=== PATIENT | female | born 1990 | race Asian ===

== ENCOUNTER 2018-04-24 21:27 | Emergency (ER) | payer MEDICAID ==
[~2018-04-24] VITALS: Ht 160 cm; Wt 59.0 kg
[2018-04-24] MEDS ORDERED: LIORESAL 10 MG10 MG PO (21:42)
[2018-04-24] MEDS ORDERED: DETROL LA4 MG PO (21:43)
[2018-04-24] MEDS ORDERED: VALIUM5 MG PO (21:43)
[2018-04-24 22:34] LABS: URINE BILIRUBIN NEGATIVE (Negative); URINE BLOOD NEGATIVE (Negative); URINE CLARITY TURBID; URINE COLOR YELLOW; URINE GLUCOSE-RANDOM NEGATIVE (Negative); URINE KETONES NEGATIVE (Negative); URINE LEUKOCYTES-REFLEX 1+ (Negative); URINE PROTEIN NEGATIVE (Negative)
[2018-04-24 22:35] LABS: URINE NITRITE-REFLEX POSITIVE (Negative)
[2018-04-24 22:46] LABS: ABSOLUTE BASOPHILS 0.1 thou/uL (0.0-0.2); ABSOLUTE EOSINOPHILS 0.3 thou/uL (0.0-0.7); ABSOLUTE LYMPHOCYTES 1.8 thou/uL (0.8-5.3); ABSOLUTE MONOCYTES 0.4 thou/uL (0.0-1.2); ABSOLUTE NEUTROPHILS 3.3 thou/uL (1.6-8.1); BASOPHILS 1.1 %; EOSINOPHILS 5.1 %; HEMATOCRIT 34.2 % (37.0-47.0); LYMPHOCYTES 31.2 %; MCH 27.3 pg (26.0-34.0); MCHC 32.1 g/dL (28.0-37.0); MCV 84.9 fL (80.0-100.0); MONOCYTES 7.3 %; MPV 8.9 fl. (7.2-11.1); NUCLEATED RBCS 0 /100WBC; PLATELET COUNT* 245 thou/uL (150-400); POLYS 55.3 %; RBC 4.02 mil/uL (4.20-5.00); RDW-CV 15.3 % (10.5-14.5); WBC 5.9 thou/uL (4.0-11.0)
[2018-04-24 22:49] LABS: CREATININE 0.5 mg/dL (0.6-1.3); POTASSIUM 4.2 mmol/L (3.5-5.1)
[2018-04-24 22:50] LABS: BACTERIA-REFLEX >30 Many /HPF (None Seen); SQUAMOUS >10 Many /LPF (0-3)
[2018-04-24 22:52] LABS: MUCUS 0-3 Light strn/LPF (None Seen)
[2018-04-24 22:53] LABS: URINE RBC 0-2 Rare /HPF (0-2); URINE WBC-REFLEX >25 Many /HPF (0-5); WBC CLUMPS Few (None Seen)
[2018-04-24 22:54] LABS: CASTS None Seen /LPF (None Seen); CRYSTALS None Seen /LPF (None Seen)
[2018-04-24 22:59] LABS: TOTAL BILIRUBIN 0.1 mg/dL (<0.1-1.0); TOTAL PROTEIN 6.8 g/dL (6.4-8.2)
[2018-04-25] MEDS ORDERED: HYDROCODONE-AP1 EAC6 PO (00:18)
[2018-04-25] MEDS ORDERED: AUGMENTIN 875-1 EACH PO (00:19)
[2018-04-25 00:30] VITALS: BP 112/70
== END 2018-04-25 00:30 | disposition home or self-care (01) ==
LOC: M.ERS 21:27
PROVIDERS: Nurse Practitioner Family
DX: N39.0 Urinary tract infection, site not specified (principal); M62.838 Other muscle spasm

== ENCOUNTER 2018-04-27 10:29 | Inpatient (IN) | payer MEDICAID ==
[~2018-04-27] VITALS: Ht 160 cm; Wt 70.3 kg
[~2018-04-27 10:29] MED LIST: AUGMENTIN 875-1 EACH PO; DETROL LA4 MG PO; HYDROCODONE-AP1 EAC6 PO; LIORESAL 10 MG10 MG PO; VALIUM5 MG PO
[2018-04-27 10:37] VITALS: BP 102/57
[2018-04-27 11:28] LABS: ABSOLUTE EOSINOPHILS 0.3 thou/uL (0.0-0.7); ABSOLUTE LYMPHOCYTES 1.3 thou/uL (0.8-5.3); ABSOLUTE MONOCYTES 0.2 thou/uL (0.0-1.2); ABSOLUTE NEUTROPHILS 4.2 thou/uL (1.6-8.1); BASOPHILS 0.4 %; EOSINOPHILS 5.3 %; HEMATOCRIT 37.1 % (37.0-47.0); HEMOGLOBIN 11.8 gm/dL (12.0-15.0); LYMPHOCYTES 20.8 %; MCH 27.2 pg (26.0-34.0); MCHC 31.8 g/dL (28.0-37.0); MCV 85.6 fL (80.0-100.0); MPV 9.3 fl. (7.2-11.1); NUCLEATED RBCS 0 /100WBC; PLATELET COUNT* 231 thou/uL (150-400); POLYS 69.5 %; RBC 4.33 mil/uL (4.20-5.00); RDW-CV 15.7 % (10.5-14.5); WBC 6.1 thou/uL (4.0-11.0)
[2018-04-27 11:34] LABS: CALCIUM 8.1 mg/dL (8.5-10.1); CREATININE 0.6 mg/dL (0.6-1.3); POTASSIUM 4.3 mmol/L (3.5-5.1)
[2018-04-27 11:35] LABS: URINE BILIRUBIN NEGATIVE (Negative); URINE BLOOD NEGATIVE (Negative); URINE CLARITY CLEAR; URINE COLOR YELLOW; URINE GLUCOSE-RANDOM NEGATIVE (Negative); URINE KETONES NEGATIVE (Negative); URINE LEUKOCYTES-REFLEX TRACE (Negative); URINE NITRITE-REFLEX NEGATIVE (Negative); URINE PROTEIN NEGATIVE (Negative); URINE SPECIFIC GRAVITY 1.025 (1.005-1.030)
[2018-04-27 11:39] LABS: ALBUMIN 2.6 g/dL (3.4-5.0); TOTAL BILIRUBIN 0.3 mg/dL (<0.1-1.0)
[2018-04-27 12:07] LABS: MUCUS >6 Heavy strn/LPF (None Seen); SQUAMOUS >10 Many /LPF (0-3)
[2018-04-27 12:08] LABS: CASTS None Seen /LPF (None Seen); URINE WBC-REFLEX >25 Many /HPF (0-5); WBC CLUMPS Many (None Seen)
[2018-04-27 12:09] LABS: BACTERIA-REFLEX >30 Many /HPF (None Seen); CRYSTALS None Seen /LPF (None Seen); URINE RBC 3-10 Few /HPF (0-2)
[2018-04-27 15:13] VITALS: BP 85/43
[2018-04-27 16:00] VITALS: BP 124/52; BP 92/52
--- NOTE | 2018-04-27 16:37 | NUR ---
PT ADMITTED FROM ER. HISTORY AND ASSESSMENT COMPLETE.
[2018-04-27 20:00] VITALS: BP 88/48
[2018-04-28] VITALS: BP 86/33
[2018-04-28 04:00] VITALS: BP 83/36
--- NOTE | 2018-04-28 04:30 | NUR ---
ASSUMED CARE OF PT AT 1900 PT ALERT AND ORIENTED X4 VS AND ASSESSMENT AT PTS BASLELINE. PT C/O L HAND PAIN OBTAINED AND ADMINISTERED PAIN MEDS. PT C/O FACIAL ITCHING, FACE WAS RED AND BLOTCHY OBTAINED AND ADMINISTERED BENADRYL 25MG PO X1 PTS REDNESS AND BLOTCHINESS RESOLVE BUT PT STILL C/O ITCHING OBTAINED ORDER FOR BENADRYL CREAM AND ADMINISTERED . AT 0400 PT C/O "FREQUENTLY DROPPING THINGS OVERNIGHT" WILL PAS THIS ON TO DAY SHIFT TO NOTIFY MD. PT RUNNING NS TO ST ON THE MONITOR. WILL CONTINUE PLAN OF CARE.
[2018-04-28 05:10] LABS: HEMATOCRIT 34.9 % (37.0-47.0); HEMOGLOBIN 11.1 gm/dL (12.0-15.0); MCH 27.5 pg (26.0-34.0); MCHC 31.9 g/dL (28.0-37.0); MCV 86.1 fL (80.0-100.0); MPV 10.2 fl. (7.2-11.1); RBC 4.05 mil/uL (4.20-5.00); WBC 8.2 thou/uL (4.0-11.0)
[2018-04-28 05:18] LABS: CALCIUM 8.1 mg/dL (8.5-10.1); CREATININE 0.6 mg/dL (0.6-1.3); MAGNESIUM 1.8 mg/dL (1.8-2.4); POTASSIUM 4.3 mmol/L (3.5-5.1)
[2018-04-28 09:00] VITALS: BP 87/41
[2018-04-28 12:00] VITALS: BP 88/41
--- NOTE | 2018-04-28 19:49 | NUR ---
Report received at 0700, pt assessment complete. Pt able to make needs known, family at bedside most of this shift. MRI ordered and taken off unit for scan. pt appetite fair, minor c/o pain throughout shift. hourly rounding complete.
[2018-04-28 20:15] VITALS: BP 88/43
[2018-04-29] VITALS (8 sets, daily range): BP systolic 68–99; BP diastolic 33–53
--- NOTE | 2018-04-29 01:15 | NUR ---
DR MCKINNEY NOTIFIED OF PT HEART RATE AND CO HEADACHE UNRELIEVED BY PAIN MED AND BACLOFEN. NO NEW ORDERS AT THIS TIME.
--- NOTE | 2018-04-29 06:49 | NUR ---
PT SLEPT A LITTLE OFF AND ON OVERNIGHT. CO HEADACHE AND R HAND TINGLING, ALSO ITCHING TO BOTH HANDS AT TIMES. PO PAIN MED GIVEN ORDERED. TELE ST, UP INTO 120-130 AT TIMES. MADE AWARE. ANALI SL. BEDREST, PICTURE TAKEN OF R HEEL. PT TURNED AND REPOSITIONED Q2 HOURS AND PRN SHE WOULD ALLOW. SUPRAPUBIC CATHETER DRAINING YELLOW URINE. REQUESTING CHOCOLATE PUDDING SEVERAL TIMES OVERNIGHT FOR SNACK. AM LABS DRAWN. ABLE TO USE CALL LITE AND MAKE NEEDS KNOWN. BP SOFT AND STABLE.
--- NOTE | 2018-04-29 14:32 | CON ---
[address] [address] CONSULTATION Name: HECTORAVANataliia Puri Room: [address] IN .R.#: [id number] Admission: 04/27/18 Attend Phys: Simon Jacobson, Discharge: Date of : 91 Report #: [id number] THIS REPORT FOR: //name// CC: RADHA physician/PCP Simon Jacobson MD DATE OF SERVICE: 04/28/2018 HISTORY OF PRESENT ILLNESS: The patient is a 28-year-old female with a 12-year history of transverse myelitis at T4-T6. Apparently, the patient had gone to [facility] for a visit and contracted transverse myelitis. The patient has significant weakness in the lower extremities. The patient had come to the hospital 3 days prior when she had been diagnosed with urinary tract infection. However, this did not seem to be improving and when she then noticed paresthesias in the upper extremities, the patient was admitted to the hospital and placed on IV antibiotics. Today, the patient states the symptoms seem better, but she still has paresthesias in the upper extremities and also feels that she has spasticity in the upper extremities, which is also something unusual for her. PAST MEDICAL HISTORY: Transverse myelitis. PAST SURGICAL HISTORY: Bladder augmentation. MEDICATIONS: Baclofen 10 mg q.i.d., oxybutynin 5 mg t.i.d., diazepam 5 mg daily. ALLERGIES: AMOXICILLIN. PHYSICAL EXAMINATION: VITAL SIGNS: Temperature is 37.4, pulse rate 102, respiratory rate 16, blood pressure 88/41, bedside pulse oximetry 97% on room air. LABORATORY DATA: Hematology: White blood cell count 8.2, hemoglobin 11.1, hematocrit 34.9, MCV 86.1, platelet count 225,000. Urinalysis, trace leukocyte esterase, many bacteria, nitrite negative. Chemistry: Sodium 137, potassium 4.3, chloride 106, carbon dioxide 26, BUN 13, creatinine 0.6, GFR 120. Glucose 87, calcium 8.1, magnesium 1.8. Liver functions normal. No imaging studies. NEUROLOGIC: Cranial nerves 2-12 are grossly intact. Motor exam demonstrates symmetrical strength in the upper extremities. The patient has no appreciable movement in the lower extremities and has significant spasticity in the lower extremities. Reflexes are symmetric in the upper extremities. She has bilateral extensor plantar responses. There is no evidence of dysmetria in [place] [address] CONSULTATION Name: NATHALIA YOUNG Room: [address] IN [facility]#: [id number] Admission: 04/27/18 Attend Phys: Simon Jacobson, Discharge: Date of : 91 Report #: [id number] IMPRESSION: This patient has a history of transverse myelitis in the thoracic spine. I explained to her that this will not cause symptoms in the upper extremities. I have ordered an MRI of the cervical and thoracic spine, both with and without contrast. I did explain to her; however, that because she has a bladder infection, this can cause other symptoms and can make her previous symptoms more apparent. Because she has generalized paresthesias, I have also ordered a B12 level. Dr. Pleitez will be following the patient as of Sunday. I thank you for your kind referral of this patient. <ELECTRONICALLY SIGNED> By: Mary Rodriguez DO 04/29/18 1432 1315 [id number] Rodriguez DO /nt
--- NOTE | 2018-04-29 15:26 | NUR ---
MET WITH PT AND MOM TO DISCUSS HOME SITUATION/DC PLANNING. PT LIVES WITH PARENTS. SHE IS UNINSURED BUT STATES APPLIED FOR MEDICAID A FEW DAYS AGO, MADE HER AWARE THAT IT CAN TAKE UP TO 30 DAYS TO HEAR BACK. PT IS W/C BOUND, DOES SELF CATH. PARENTS ARE SUPPORTIVE. PT STATES SHE IS FAIRLY INDEPENDENT. UNSURE IF SHE WILL BE ABLE TO AFFORD HER MEDS, STATED MAY DEPEND ON COST. CM TO FOLLOW AND ASSIST
--- NOTE | 2018-04-29 16:18 | NUR ---
PATIENT GIVEN PRN OXY IR FOR HEADACHE. DR. GONZALEZ ORDERED IV KEPPRA AND IV MAG FOR HEADACHE, INFUSED ORDERED. WILL RESUME IV KEPPRA WHEN RETURNED FROM MRI OF HEAD ORDERED BY NEURO. PATIENT REFUSING TO TURN MOST OF THE SHIFT, EDUCATION GIVEN. PRAFO BOOTS ORDERED, MATERIALS NOTIFIED OF ORDER AND ALSO PILOT NOTIFIED OF NEED FOR BOOTS. IV SL, SCHED ABX GIVEN THIS AM. PATIENT REQUESTING MEDICATION TO HELP WITH SPASMS FOR MRI, IV ATIVAN GIVEN PER MAR ORDERS. BLOOD PRESSURE CONTINUES TO RUN SOFT, PER PATIENT THIS IS HER NORMAL. ONE TIME IM DOSE OF VITAMIN B12 GIVEN ORDERED, MEDICATION TO START PO TOMORROW.
[2018-04-30 04:00] VITALS: BP 103/52
--- NOTE | 2018-04-30 06:39 | NUR ---
PT AO, PLEASANT. SLEPT ON AND OFF OVERNIGHT. RECEIVING OXY IR FOR CO HEADACHE WITH PAIN GOING DOWN INTO HER BACK SHE STATES. TEMP MAX 99.9 OVERNIGHT, TYLENOL GIVEN. REQUESTING ORDER FOR VALIUM AT HS FOR LEG SPASTICITY, DR DE LEON NOTIFIED AND ORDER RECEIVED. LAC SL. PT TURNED AND REPOSITIONED SHE WOULD ALLOW OVERNIGHT FOR SKIN CARE AND COMFORT. PRAFO BOOTS ON BLE. TELE ST, RATE INTO 130'S FOR A PERIOD OF TIME OVERNIGHT, BUT MAINLY 110'S LOW 120'S THIS SHIFT. SUPRAPUBIC CATH DRAINING LIGHT YELLOW URINE. R HEEL PRESSURE SORE. ABLE TO USE CALL LITE AND MAKE NEEDS KNOWN.
[2018-04-30 07:55] VITALS: BP 91/48
--- NOTE | 2018-04-30 10:50 | NUR ---
Nutrition: Pt was seen for pressure ulcer on Rt heel. Feet are swollen right now, edema. Admitted for UTI. 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 Labs: albumin 2.6, prealb 18.1. Takes B12. Pt stated she is eating 100% of meals. She is vegetarian and is not receiving the proper diet. RD spoke with RN and will change diet order to reflect Vegetarian diet. Noticed wt increasing since admit - pt stated fluid-related, also noted bed wts. Pt stated usual wt is 130#. Encouraged good protein intake at meals for wound healing. Mild risk at this time.
[2018-04-30 12:00] VITALS: BP 95/59
[2018-04-30 16:00] VITALS: BP 90/50
--- NOTE | 2018-04-30 18:15 | NUR ---
PATIENT A&OX4, RA, IV LEFT AC SALINE LOCK. BEDREST, PARAPALEGIC. UP TO W/C WITH ASSISTX1-2. C/O HEADACHE RADIATING DOWN THE SHOULDERS AND BACK. PARTIAL RLEIF WITH MEDICATION. REDNESS TO RIGHT HEEL, PRAVO BOOTS IN PLACE. NO OTHER CONCERNS AT THIS TIME. APPROPRIATE AND COOPORATIVE WITH CARE.
[2018-04-30 20:00] VITALS: BP 85/44
[2018-05-01 00:17] VITALS: BP 87/44
[2018-05-01 04:00] VITALS: BP 99/59
[2018-05-01 04:23] LABS: ABSOLUTE EOSINOPHILS 0.3 thou/uL (0.0-0.7); ABSOLUTE MONOCYTES 0.5 thou/uL (0.0-1.2); BASOPHILS 0.6 %; EOSINOPHILS 4.4 %; HEMOGLOBIN 10.5 gm/dL (12.0-15.0); MCH 27.2 pg (26.0-34.0); MCHC 31.7 g/dL (28.0-37.0); MCV 85.9 fL (80.0-100.0); MONOCYTES 9.1 %; MPV 9.3 fl. (7.2-11.1); NUCLEATED RBCS 0 /100WBC; PLATELET COUNT* 244 thou/uL (150-400); POLYS 51.9 %; RBC 3.85 mil/uL (4.20-5.00); RDW-CV 15.5 % (10.5-14.5); WBC 5.8 thou/uL (4.0-11.0)
[2018-05-01 04:34] LABS: CALCIUM 8.5 mg/dL (8.5-10.1); CREATININE 0.5 mg/dL (0.6-1.3); MAGNESIUM 1.8 mg/dL (1.8-2.4); POTASSIUM 4.2 mmol/L (3.5-5.1)
--- NOTE | 2018-05-01 06:19 | NUR ---
PATIENT SLEPT MOST OF THE NIGHT. IV REMAINS SALINE LOCKED. PATIENT WAS GIVEN PAIN MEDS AND BENADRYL NEEDED. SUPRAPUBIC CATH REMAINS TO DEPENDENT DRAIN. WILL CONTINUE TO MONITOR.
[2018-05-01 12:00] VITALS: BP 109/64
[2018-05-01 16:00] VITALS: BP 91/57
--- NOTE | 2018-05-01 17:40 | NUR ---
DEFERRED O.T. EVAL UNTIL TOMORROW DUE TO PT. IN THE SHOWER WITH DEPENDENT PERSON TRANSFER X 3 WITH MOTHER ASSISTING HER WITH THE SHOWER. WILL CHECK DURING EVALUATION TO SEE WHAT ADLS PT. WANTS TO COMPLETE HERSELF AND WHAT SHE WANTS FAMILY TO DO FOR HER. PER THE RN, PT. LEAVES FOR [place] NEXT WEEK ON SUNDAY FOR FURTHER STEM CELL TX.
--- NOTE | 2018-05-01 18:08 | NUR ---
PATIENT A&OX4, RA, IV LEFT AC INFILTRATED. NEW IV PLACED IN LEFT FOREARM ABX INFUSSING. UP WITH ASSISTX2-3, W/C DEPENDENT. C/O HEADACHE RAIDIATING TO BACK, PARTIAL RELIEF WITH MEDICAITON. NUMBNESS AND TINGLING TO BILATERAL HANDS, STATES BETTER TODAY. SUPRAPUBIC CATHETER CHANGED TODAY, STAT LOCK IN PLACE. SHOWER TODAY. NO OTHER CONCERNS AT THIS TIME. APPROPRIATE AND COOPORATIVE WITH CARE.
[2018-05-01 20:00] VITALS: BP 84/38
[2018-05-01 21:09] LABS: IgA 235 mg/dL (87-352); IgG 908 mg/dL (700-1600); IgM 111 mg/dL (26-217)
--- NOTE | 2018-05-02 03:29 | NUR ---
ASSESSMENT: PT REMAIN ALERT AND ORIENT TIMES FOUR. C/O HEADACHE PAIN, LASTING FOR FOUR HOURS. TYLENOL GIVEM WITH GOOD RESULTS. FAMILY WAS AT THE BEDSIDE AT THE BEGINNING OF THE SHIFT. TURNED PER REQUEST AND 2 HOURS.SUPERPUBIC CATH PATENT WITH YELLOW UO. NO BM THIS SHIFT. PT STATES THAT SHE HAS FEELING THROUGH OUT BODY, DOES HAVE SOME TINGLING AND NUMBNESS ON UPPER AND LOWER EXTREMITES. TOLERATING PO INTAKE. SLOW PROGRESS TOWARDS DC GOALS. WILL CONTINUE TO MONITOR.
[2018-05-02 08:00] VITALS: BP 115/57
--- NOTE | 2018-05-02 12:35 | CON ---
[address] [address] CONSULTATION Name: HECTORNATHALIA Room: [address] IN M.R.#: [id number] Admission: 04/27/18 Attend Phys: Simon Jacobson, Discharge: Date of : 91 Report #: [id number] THIS REPORT FOR: //name// CC: RADHA physician/PCP Simon Jacobson DATE OF SERVICE: 05/01/2018 INFECTIOUS DISEASE CONSULTATION ATTENDING PHYSICIAN: Simon Jacobson M.D. REASON FOR EVALUATION: Complicated urinary tract infection due to multiply resistant Pseudomonas aeruginosa. HISTORY OF PRESENT ILLNESS: Chart reviewed, the patient examined. This is a 28-year-old woman with history of transverse myelitis, who is left with some degree of deficits. She has had a history of recurrent urinary tract infections and was admitted due to back-related discomfort. She was confirmed to have marked degree of pyuria on 2 separate occasions, 04/24/2018 and 04/27/2018. Urine culture from 04/24/2018 was a mixed evelyn; from 04/27/2018, however, it had Pseudomonas aeruginosa, 10-25,000 colony-forming units per mL, that was multi-drug resistant, only susceptible in vitro and an STEPHEN of equivalent to gentamicin for the standard tested antibiotics. Initially, she had been on ceftriaxone. Thus, she was given a dose of gentamicin. At this point, she is not overtly toxic, though there is some degree of discomfort. She denies pulmonary or gastrointestinal-related complaints. ALLERGIES: AMOXICILLIN. CURRENT MEDICATIONS: Include gentamicin, folic acid, cyanocobalamin, diphenhydramine, diazepam, acetaminophen, ceftriaxone, enoxaparin and oxycodone. PAST MEDICAL HISTORY: As described above, the transverse myelitis, history of cardiac arrest and seizures. SOCIAL HISTORY: Nonsmoker. Occasional ethanol. FAMILY HISTORY: Noncontributory. REVIEW OF SYSTEMS: As above. PHYSICAL EXAMINATION: GENERAL: She is a pleasant, alert, cooperative, sitting in a wheelchair. She is not encephalopathic, in mild distress, appears generally well nourished. VITAL SIGNS: Temperature 97.8, pulse 106, respirations 20 [place] [address] CONSULTATION Name: HECTOR,VIRALI J Room: [address]#: [id number] Admission: 04/27/18 Attend Phys: Simon Jacobson, Discharge: Date of : 91 Report #: [id number]. SKIN: Warm, dry. No rashes. HEENT: Otherwise, unremarkable. NECK: Supple. LUNGS: Clear to auscultation. HEART: Regular. I do not appreciate a murmur. ABDOMEN: Soft, mildly distended. There are no peritoneal signs. GENITOURINARY: Deferred. RECTAL: Deferred. LABORATORY DATA: Urine culture as described above. CBC, most recently, white count is 5.8, H and H 10.5 and 33.0 and platelets 244,000. Electrolytes: Sodium 139, potassium 4.2, chloride 104, bicarbonate is 28 and BUN and creatinine 4 and 0.5. TSH of 3.754. CPK 24. test was negative. Blood cultures are sterile. ASSESSMENT AND PLAN: Complicated urinary tract infection in a patient with neurological deficits. Additional history seems to be recurrent in nature and she has received multiple courses of antibiotics. At this point, has multiple resistant Pseudomonas aeruginosa. We will continue the gentamicin on a once daily dosing, noted often will go 10 or so days since she is leaving for [facility] within the week. We will repeat the urinalysis in 3-4 days to see how she is doing clinically. She is not overtly toxic at this point. <ELECTRONICALLY SIGNED> By: Abundio Ramos MD 05/02/18 1235 1625 0004Joelo Ramos MD /nt
[2018-05-02 16:12] VITALS: BP 121/46
--- NOTE | 2018-05-02 19:25 | NUR ---
ASSUMED CARE THIS AM, JEANNA MEDS AND CARES W/O C/O, VSS, SEE ASSESSMENT FOR DETAILS. FAMILY AT BEDSIDE, PLAN IS TO CONTINUE IV ABT THERAPY UNTIL PATIENT NEEDS D/C TO RETURN TO [facility], PLAN OF CARE DISCUSSED WITH PATIENT, DENIES QUESTIONS, CALL LIGHT IN REACH, CONT POC.
[2018-05-03] VITALS: BP 91/54
[2018-05-03 04:53] LABS: ABSOLUTE BASOPHILS 0.1 thou/uL (0.0-0.2); ABSOLUTE EOSINOPHILS 0.3 thou/uL (0.0-0.7); ABSOLUTE LYMPHOCYTES 3.2 thou/uL (0.8-5.3); ABSOLUTE MONOCYTES 0.6 thou/uL (0.0-1.2); BASOPHILS 1.1 %; EOSINOPHILS 3.7 %; HEMATOCRIT 34.1 % (37.0-47.0); MCH 27.4 pg (26.0-34.0); MCHC 32.3 g/dL (28.0-37.0); MCV 85.1 fL (80.0-100.0); MONOCYTES 8.1 %; MPV 9.2 fl. (7.2-11.1); NUCLEATED RBCS 0 /100WBC; PLATELET COUNT* 291 thou/uL (150-400); POLYS 42.1 %; RBC 4.01 mil/uL (4.20-5.00); RDW-CV 15.6 % (10.5-14.5); WBC 7.2 thou/uL (4.0-11.0)
[2018-05-03 05:04] LABS: ALBUMIN 2.9 g/dL (3.4-5.0); CALCIUM 8.3 mg/dL (8.5-10.1); CREATININE 0.5 mg/dL (0.6-1.3); POTASSIUM 4.2 mmol/L (3.5-5.1); TOTAL BILIRUBIN 0.2 mg/dL (<0.1-1.0); TOTAL PROTEIN 6.4 g/dL (6.4-8.2)
--- NOTE | 2018-05-03 06:44 | NUR ---
PT SLEPT FAIRLY WELL OVERNIGHT. RECEIVING OXY AT HS AND DIAZEPAM ORDERED FOR ANXIETY. PT REQUESTING CM CONSULT TO SEE ABOUT DAY PASS TO VISIT FAMILY. AM LABS DRAWN. VSS. SUPRAPUBIC CATHETER DRAINING YELLOW URINE. PT TURNED AND REPOSITIONED Q2 HOURS AND PRN FOR SKIN CARE AND COMFORT PT WOULD ALLOW. PRAFO BOOTS ON BLE. AT HS PT STATED IV BURNING WITH FLUSH, WOULD LIKE IV REMOVED AND RESTARTED JUST PRIOR TO NEXT ABX DOSE 05/03. ABLE TO USE CALL LITE AND MAKE NEEDS KNOWN.
[2018-05-03 08:00] VITALS: BP 100/57
[2018-05-03 14:10] LABS: ANA INTERPRETATION Negative (Negative)
[2018-05-03 15:30] VITALS: BP 95/62
--- NOTE | 2018-05-03 18:52 | NUR ---
RESUMED CARE THIS AM, COMPLIANT W/ MEDS AND CARES, NEW IV PLACED TO LFA X 1 ATTEMPT W/ USE OF ULTRASOUND, FAMILY AT BEDSIDE, NO DISTRESS NOTED, CONT POC.
[2018-05-03 19:50] VITALS: BP 89/57
[2018-05-04 05:02] LABS: HEMATOCRIT 33.5 % (37.0-47.0); HEMOGLOBIN 10.8 gm/dL (12.0-15.0); MCH 27.2 pg (26.0-34.0); MCHC 32.2 g/dL (28.0-37.0); MCV 84.6 fL (80.0-100.0); MPV 9.1 fl. (7.2-11.1); RBC 3.96 mil/uL (4.20-5.00); RDW-CV 15.5 % (10.5-14.5)
[2018-05-04 05:52] LABS: CALCIUM 8.6 mg/dL (8.5-10.1); CREATININE 0.6 mg/dL (0.6-1.3); MAGNESIUM 1.9 mg/dL (1.8-2.4); POTASSIUM 4.4 mmol/L (3.5-5.1); TOTAL BILIRUBIN 0.2 mg/dL (<0.1-1.0); TOTAL PROTEIN 6.6 g/dL (6.4-8.2)
--- NOTE | 2018-05-04 07:02 | NUR ---
VITALS WNL. SEE MAR. SEE CHARTING. FALL PRECAUTIONS IN PLACE. HOURLY ROUNDING FOR SAFETY.
[2018-05-04 09:00] VITALS: BP 89/49
--- NOTE | 2018-05-04 12:18 | NUR ---
ASSUMED PT CARE AT 0700 PT IS ALERT AND ORIENTED X4 PT STATES HAS MILD PAIN IN RIGHT HEEL PT HAS BLISTER ON RIGHT INNER HEEL, PT DENIES SOA PT IS RA, PT IS Q 2 TURNS MOBIITY IS COMPROMISED, PT IS MEDICAL SURGICAL STATUS, PT HAS BOLDEN IN BLADDER STOMA PT WANTS REMOVED PAGED PHYSICIAN OBTAINED ORDERS FOR REPEAT UA WITH CULTURE AND BOLDEN CAN BE REMOVED, PT CONCERNED WITH DIET PT IS A VEGETARIAN NOT A VEGAN CALLED DIETARY TO CONFIRM DIET REFLECTS PT REQUEST, WILL CONTINUE TO MONITOR
[2018-05-04 13:34] LABS: URINE BILIRUBIN NEGATIVE (Negative); URINE BLOOD NEGATIVE (Negative); URINE CLARITY CLEAR; URINE COLOR YELLOW; URINE GLUCOSE-RANDOM NEGATIVE (Negative); URINE KETONES NEGATIVE (Negative); URINE LEUKOCYTES-REFLEX 1+ (Negative); URINE NITRITE-REFLEX NEGATIVE (Negative); URINE PROTEIN NEGATIVE (Negative); URINE SPECIFIC GRAVITY <= 1.005 (1.005-1.030); URINE UROBILINOGEN 0.2 E.U./dl (0.2-1.0)
[2018-05-04 13:55] LABS: CASTS None Seen /LPF (None Seen); MUCUS 0-3 Light strn/LPF (None Seen); SQUAMOUS >10 Many /LPF (0-3)
[2018-05-04 13:56] LABS: BACTERIA-REFLEX 1-9 Few /HPF (None Seen); CRYSTALS None Seen /LPF (None Seen); URINE RBC 0-2 Rare /HPF (0-2); URINE WBC-REFLEX 0-5 Rare /HPF (0-5)
[2018-05-04 16:00] VITALS: BP 96/53
[2018-05-04 21:00] VITALS: BP 88/43
[2018-05-05 00:40] VITALS: BP 98/67
--- NOTE | 2018-05-05 05:17 | NUR ---
ALERT AND ORIENTED X4. C/O LOW BACK PAIN AND SPASMS IN LOWER LEGS, MEDICATION GIVEN AND PATIENT THEN ABLE TO SLEEP. PATIENT STRAIGHT CATH SELF THROUGH STOMA WITHOUT DIFICULTY WITH CLEAR YELLOW URINE RETURNED. STRAIGHT CATH TUBING WAS THEN USED TO INSTALL GENTAMMYCIN ANTIBIODIC WITHOUT DIFFICULTY. HEELS ELEVATED OFF BED. RIGHT HEEL WOUND DRY WITHOUT DRAINAGE. PULSE NOTED TO BE ELEVATED AND B/P LOW DR NOTIFIED. 12LEAD EKG DONE ORDERED. OFFERED TO REPOSITION PATIENT SEVERAL TIMES AND PATIENT REFUSED. CALL LIGHT WITHIN REACH.
--- NOTE | 2018-05-05 07:42 | NUR ---
ASSUMED CARE OF PT AT THIS TIME. REPORT OBTAINED FROM [facility] FREIT[facility]. PT ASLEEP AT THIS TIME.
[2018-05-05 08:45] VITALS: BP 97/64
--- NOTE | 2018-05-05 11:11 | EKG ---
[place] [address] ELECTROCARDIOGRAM REPORT Name: AVA YOUNGNataliia Puri Room: [address] ADM IN M.R.#: [id number] Admission: 04/27/18 Attend Phys: Simon Jacobson, Discharge: Date of : 91 Report #: [id number] THIS REPORT FOR: //name// [facility] Test Date: 2018-05-04 Test Time: 23:35:35 Pat Name: NATHALIA YOUNG Department: Room: [address] Gender: F X Ray Service Engineer: VO : 1990 Requested By: Simon Jacobson Order Number: [id number] Jonatan MD: Eder Gomez Measurements Intervals Norman Rate: 94 P: 42 AZ: 138 QRS: 16 QRSD: 78 T: 23 QT: 370 QTc: 463 Interpretive Statements Sinus rhythm Probable left atrial enlargement Borderline T abnormalities, anterior leads Baseline wander in lead(s) V3 No previous ECG available for comparison Electronically Signed On 05-05-2018 11:11:24 CDT by Eder Gomez [email or web address] <ELECTRONICALLY SIGNED> By: Eder Gomez MD, [facility] 05/05/18 1111 [id number] [id number] Eder Gomez MD, FAC /EPI
[2018-05-05 16:17] VITALS: BP 93/56
--- NOTE | 2018-05-05 18:59 | NUR ---
PT VSS THIS SHIFT. PT TOLERATING DIET AND RA AT THIS TIME. PT HAS WOUND ON R INNER HEEL, PIX NOT OBTAINED AT THIS TIME, WILL INFORM INFORMATION SECURITY ASSOCIATE. PT IS PARAPALEGIC BUT IS VERY CONDITIONED. PT PLACED IN CONTACT ISOLATION THIS SHIFT. PT MOTHER, WHO IS PT CAREGIVER, A PATIENT ON THIS UNIT AND THEY ARE BOTH BEING PLANNED TO DC TOGETHER. PT HAS URINARY STOMA AND PT STRAIGHT CATHS SELF Q4 WITH HER MOTHER. PT HAD 400 OUT MY SHIFT THAT I SAW. PT TAKES VALIUM FOR SPACTICITY AND HAS C/O LOW BACK PAIN. PT TO POTENTIALLY DC TOMORROW.
[2018-05-05 20:25] VITALS: BP 95/55
--- NOTE | 2018-05-06 06:10 | NUR ---
PT SLEPT ON AND OFF THIS SHIFT. ASSESSMENT DOCUMENTED. MEDS GIVEN PER E-MAR. IV PATENT. PT STRAIGHT CATHED SELF THIS SHIFT, NO REDNESS OR EDEMA AROUND STOMA. NO REPORTS OF PAIN OR NAUSEA. PT ASKING IF DR WILL WRITE A LETTER CLEARING HER TO GO [employer]. WILL CONTINUE WITH PLAN OF CARE.
[2018-05-06 08:00] VITALS: BP 96/57
[2018-05-06] MEDS ORDERED: FOLIC ACID1 MG PO (10:39)
[2018-05-06] MEDS ORDERED: VITAMIN B-12500 MCG PO (10:39)
[2018-05-06] MEDS ORDERED: GENTAMICIN PER TUBE (11:27)
[2018-05-06 11:28] VITALS: BP 96/57
--- NOTE | 2018-05-06 11:32 | NUR ---
YASMEEN met with pt and pt mother to follow up on pt dc planning for today. Pt in need of medicine for bladder irrigation; YASMEEN discussed with Dr Plata about pt Medicaid pending and pt services not available. Dr Plata said pt and pt mother should be able to provide needed care at home. YASMEEN faxed script to [facility] to check on possible financial assistance that could be provided. Pt discussed need for slideboard and SW also received script for slideboard from Dr Plata. SW checked to see if there was a slideboard in donated supplies and there is not one available; SW to provided resources and referrals as needed. YASMEEN called Stacey with [employer] and left a message to check on pt status with Medicaid application.
--- NOTE | 2018-05-06 15:48 | NUR ---
WOUND NURSE: UNABLE TO SEE PATIENT HE WAS NOT IN ROOM. PER JUNAID, STAFF NURSE CARING FOR PATIENT, PATIENT TO BE DISCHARGED TODAY. PATIENT NOT SEEN BY THIS NURSE A RESULT.
--- NOTE | 2018-05-06 16:00 | NUR ---
CALLED SEVERAL DIFFERENT PHARMACIES TO FIND BLADDER IRRIGATION PRESCRIPTION WRITTEN. [facility] [address] AND [facility] [address] DO NOT DO MIXING OF IRRIGATIONS. CHRIS Sharma/PHARMACY ASSISTED CM WITH FINDING [facility] IN [place] THAT DO MIXING OF BLADDER IRRIGATIONS. SPOKE WITH [facility] [phone]. FAXED HER FACE SHEET AND PRESCRIPTION TO [phone]. PT.TO DISCHARGE TODAY AND WILL USE IRRIGANT FROM HOSPITAL FOR TONIGHTS DOSE. [facility] WILL DELIVER GENTAMYCIN IRRIGATION TOMORROW TO PT.AT HER ADDRESS. ADDRESS CONFIRMED BY YASMEEN MAGUIRE. PT.IS PT.PAY AND SAID SHE COULD NOT AFFORD THE AMOUNT OF $62 FOR MEDICATION. [facility] WILL PAY FOR MED. PHARMACY WILL SEND BILL TO [facility].[place] ATTN:FRANCISCO/ASHLEY.
--- NOTE | 2018-05-06 19:31 | NUR ---
RESUMED CARE THIS AM, SEE ASSESSMENT, NO DISTRESS, VSS. DISCHARGE ORDERS RECEIVED, IV ACCESS REMOVED W/O INCIDENT. DISCHARGE INSTRUCTIONS, F/U APPTS, PRESCRIPTIONS DISCUSSED WITH AND GIVEN TO PATIENT, DENIES QUESTIONS. PERSONAL EFFECTS GATHERED, ACCOUNTED FOR, IN COMPANY OF PATIENT. TRANSPORTED VIA WHEELCHAIR TO MAIN ENTRANCE IN STABLE CONDITION, TRANSPORT PROVIDED BY FAMILY.
--- NOTE | 2018-05-09 10:39 | CON ---
[address] [address] CONSULTATION Name: AVA YOUNGNataliia Puri Room: [address] IN M.R.#: [id number] Admission: 04/27/18 Attend Phys: Simon Jacobson, Discharge: 05/06/18 Date of : [birth year] Report #: [id number] THIS REPORT FOR: //name// CC: RADHA physician/PCP Simon Jacobson REASON FOR CONSULTATION: Evaluation and recommendations regarding post-acute rehabilitation in a 28-year-old female noted to have transverse myelitis secondary to overseas travel and fever in 2005, who has recently been hospitalized and diagnosed with urinary tract infection. She does do self-catheterization and has for some time. She was placed on antibiotics. She is at a wheelchair level of care. Previous level of function was modified independent. Current level of function is minimum to moderate assistance depending on therapy and activity. She has had cardiac and respiratory arrest in the past and has also had intermittent long periods of time with steroid treatments. She does live with her mother. ALLERGIES: AMOXICILLIN. PAST MEDICAL HISTORY: Transverse myelitis, back pain, muscle pains, muscle spasm, urinary tract infection. LABORATORIES: Have been reviewed. MEDICATIONS: Have been reviewed. DIAGNOSTICS: Have been reviewed. SOCIAL HISTORY: No tobacco, significant alcohol or illicit drug use. FAMILY HISTORY: Noncontributory. REVIEW OF SYSTEMS: A 14-point review of systems is done and is negative except as mentioned in the HPI, specifically no fever, chest pain, shortness of breath, abdominal pain or distention. PHYSICAL EXAMINATION: GENERAL: Alert, oriented, no apparent distress, up in a wheelchair. VITAL SIGNS: Reviewed and are stable. SKIN: Warm and dry. No rashes or lesions noted. PSYCHIATRIC: Normal mood and affect. ASSESSMENT: 1. Recent debility due to urinary tract infection as well as exacerbation of transverse myelitis. 2. Alterations in activities of daily living [place] [address] CONSULTATION Name: HECTORNATHALIA Puri Room: [address] IN [facility].#: [id number] Admission: 04/27/18 Attend Phys: Simon Jacobson, Discharge: 05/06/18 Date of : 89 Report #: [id number] PLAN: 1. We will follow physical and occupational therapy during this stay, may need further rehabilitation either home health or acute inpatient rehabilitation depending on therapy needs. 2. We will follow this. <ELECTRONICALLY SIGNED> By: Samreen Belle DO 05/09/18 1039 1344 [id number] Belle DO /nt
== END 2018-05-06 17:20 | disposition home health service (06) | DRG 690 ==
LOC: M.ERS 10:29 → M.3W 13:15 → M.TBA-ER 13:15 → M.3W 15:26
PROVIDERS: Family Medicine; Nurse Practitioner Family; Psychiatry & Neurology Neuromuscular Medicine; Specialist; ADMIT Family Medicine
DX: N39.0 Urinary tract infection, site not specified (principal); E53.8 Deficiency of other specified B group vitamins; B96.5 Pseudomonas (aeruginosa) (mallei) (pseudomallei) as the cause of diseases classified elsewhere; G62.9 Polyneuropathy, unspecified; Z86.69 Personal history of other diseases of the nervous system and sense organs; Z86.74 Personal history of sudden cardiac arrest; Z79.899 Other long term (current) drug therapy; Z88.1 Allergy status to other antibiotic agents

== ENCOUNTER 2018-05-09 00:26 | Emergency (ER) | payer MEDICAID ==
[~2018-05-09] VITALS: Ht 160 cm; Wt 65.8 kg
[~2018-05-09 00:26] MED LIST changes: +FOLIC ACID1 MG PO; +GENTAMICIN PER TUBE; +VITAMIN B-12500 MCG PO
[2018-05-09 01:26] VITALS: BP 99/57
== END 2018-05-09 01:27 | disposition home or self-care (01) ==
LOC: M.ERS 00:26
DX: S90.821A Blister (nonthermal), right foot, initial encounter (principal); Z88.1 Allergy status to other antibiotic agents; Z91.040 Latex allergy status; X58.XXXA Exposure to other specified factors, initial encounter; Y92.89 Other specified places as the place of occurrence of the external cause; Y93.89 Activity, other specified; Y99.8 Other external cause status

== ENCOUNTER 2018-06-11 22:57 | Emergency (ER) | payer MEDICAID ==
[~2018-06-11] VITALS: Ht 160 cm; Wt 61.7 kg
[2018-06-11] MEDS ORDERED: VALIUM5 MG (23:16)
[2018-06-12] MEDS ORDERED: HYDROCODON-ACE1 EAC7 PO (00:12)
[2018-06-12 01:18] VITALS: BP 96/57
== END 2018-06-12 01:20 | disposition home or self-care (01) ==
LOC: M.ERS 22:57
DX: S86.811A Strain of other muscle(s) and tendon(s) at lower leg level, right leg, initial encounter (principal); X58.XXXA Exposure to other specified factors, initial encounter; Y93.89 Activity, other specified; Y92.89 Other specified places as the place of occurrence of the external cause; Y99.8 Other external cause status; Z88.1 Allergy status to other antibiotic agents; Z91.040 Latex allergy status